=== PATIENT | female | born 1960 | race Caucasian/White ===

== ENCOUNTER 2021-01-08 14:30 | Emergency (ER) | payer MEDICARE ==
[~2021-01-08] VITALS: Ht 157.5 cm; Wt 78.6 kg
[2021-01-08 15:25] VITALS: TEMP 98.7
[2021-01-08 17:27] VITALS: BP 118/59; PULSE 76
[2021-01-08] MEDS ORDERED: PREVACID 30MG30 M1 PO (17:28)
[2021-01-08] MEDS ORDERED: ZOCOR 40MG40 MG PO (17:28)
[2021-01-08] MEDS ORDERED: LASIX 20MG TABL20 MG PO (17:29)
[2021-01-08] MEDS ORDERED: GLUCOPHAGE1000 MG PO (17:29)
[2021-01-08] MEDS ORDERED: LEVEMIR FLEX100 U/ML SQ (17:30)
[2021-01-08] MEDS ORDERED: HUMALOGKP50/50 SQ (17:30)
[2021-01-08] MEDS ORDERED: TRICOR145 MG PO (17:30)
[2021-01-08] MEDS ORDERED: COLESTID 1GM1 G PO (17:31)
== END 2021-01-08 17:31 | disposition home or self-care (01) ==
LOC: COL.ER 14:30
DX: S00.93XA Contusion of unspecified part of head, initial encounter (principal); S70.02XA Contusion of left hip, initial encounter; S20.212A Contusion of left front wall of thorax, initial encounter; E11.9 Type 2 diabetes mellitus without complications; E78.5 Hyperlipidemia, unspecified; K21.9 Gastro-esophageal reflux disease without esophagitis; F17.290 Nicotine dependence, other tobacco product, uncomplicated; Z79.84 Long term (current) use of oral hypoglycemic drugs; Z79.4 Long term (current) use of insulin; Z79.899 Other long term (current) drug therapy; W01.10XA Fall on same level from slipping, tripping and stumbling with subsequent striking against unspecified object, initial encounter